=== PATIENT | male | born 1975 | race Caucasian/White ===

== ENCOUNTER → 2016-07-14 | Outpatient (CLI) | payer OTHER | END | disposition home or self-care (01) | LOC: RAD 15:16 | DX: M99.01 Segmental and somatic dysfunction of cervical region (principal); M99.03 Segmental and somatic dysfunction of lumbar region; M54.2 Cervicalgia; R20.2 Paresthesia of skin ==

== ENCOUNTER → 2016-10-29 | Day surgery (SDC) | payer OTHER ==
[~2016-10-29] VITALS: Ht 167.6 cm; Wt 127.0 kg
[~2016-10-29] MED LIST: ALL DAY ALLERGY10 MG PO; ASPIRIN ADULT L81 M2 PO; GABAPENTIN600 MG PO; LANSOPRAZOLE30 MG PO; LISINOPRIL10 M1 PO; NAPROXEN375 MG PO; SIMVASTATIN40 MG PO; VITAMIN D50000 I3 PO
--- NOTE | ~2016-10-29 | O ---
[place], [place] OPERATIVE NOTE NAME: RAMILA MÉNDEZ UNIT #: [id number] ROOM: DOCTOR: DANIEL DUNN MD BIRTHDATE: [birth year] DOS: 10/29/2016 INDICATIONS: A 41-year-old patient who has presented with chief complaint of gastroesophageal reflux symptomatology and anemia, on Prevacid 30 mg daily. The patient has been on naproxen and aspirin as well. ALLERGIES: To no known medication. FAMILY HISTORY: Noncontributory. PAST SURGICAL HISTORY: Left face repair. PAST MEDICAL HISTORY: Hypercholesterolemia, gastroesophageal reflux, hypertension, obesity, depression. SOCIAL HISTORY: Nonsmoker, rare alcohol consumer. PROCEDURE: Today's procedure part of investigation is panendoscopy and colonoscopy. PREMEDICATION: Versed and Diprivan. SCOPE: Olympus forward-viewing colonoscope 10L video. REPORT: After putting the patient in the left lateral position and after application of lubricant to rectal pouch and digital examination, scope was introduced. Thereafter, under direct visualization, I advanced through the length of colon without difficulty. Base of the cecum explored, appendiceal orifice identified, and ileocecal valve was defined. A sessile polypoid lesion at the sigmoid colon with piecemeal polypectomy was removed. Air was suctioned out. The patient was gradually extubated and tolerated the procedure well. IMPRESSION: Sessile colonic polyp, status post piecemeal polypectomy, in sigmoid colon. No evidence of colonic pathology to contribute to anemia. PLAN AND DISCUSSION: We will proceed with panendoscopy. [place], [place] OPERATIVE NOTE NAME: RAMILA MÉNDEZ UNIT #: [id number] ROOM: DOCTOR: DANIEL DUNN MD BIRTHDATE: [birth year] DANIEL DUNN MD CM:OPRECORD:OPERATIVE NOTE [id number] DANIEL DUNN MD 10/29/16 1635 interface
--- NOTE | ~2016-10-29 | O ---
[place], [place] OPERATIVE NOTE NAME: RAMILA MÉNDEZ UNIT #: [id number] ROOM: DOCTOR: DANIEL DUNN MD BIRTHDATE: [birth year] DOS: 10/29/2016 INDICATIONS: The patient has presented with epigastric distress. The patient has been on aspirin and naproxen. PROCEDURE: Today's procedure part of investigation is panendoscopy plus biopsy. PREMEDICATION: Versed and Diprivan. SCOPE: Olympus forward-viewing gastroscope Q10 video. REPORT: After putting the patient in the left lateral position and after application of lubricant to the scope, the scope was introduced. Thereafter, under direct visualization, I advanced through the length of esophagus without difficulty. Esophagus cervicothoracic distally carefully examined. Gastric pouch was entered. Gastritis was noticed. Duodenal bulb, second and third part within normal limits. Small hiatal hernia was noticed. Air was suctioned out. The patient was extubated, tolerated procedure well. IMPRESSION: Hiatal hernia, gastritis. PLAN AND DISCUSSION: The patient has been on Prevacid 30 mg daily. We will continue with Prevacid due to the fact that the patient needs to be on aspirin and naproxen and antireflux measures. Follow up routinely with you in office, p.r.n. visit with us in [facility]. I thank you very much indeed for your kind referral. DANIEL DUNN MD CM:OPRECORD:OPERATIVE NOTE [id number] DANIEL DUNN MD 10/29/16 1638 interface
[2016-10-29 10:32] VITALS: BP 126/74
[2016-10-29 12:36] VITALS: BP 99/45
[2016-10-29 12:51] VITALS: BP 112/72
[2016-10-29 13:06] VITALS: BP 127/72
== END | disposition home or self-care (01) ==
LOC: SDC 10-28 10:15
DX: K62.1 Rectal polyp (principal); K29.50 Unspecified chronic gastritis without bleeding; D64.9 Anemia, unspecified; K44.9 Diaphragmatic hernia without obstruction or gangrene; K21.9 Gastro-esophageal reflux disease without esophagitis; E78.00 Pure hypercholesterolemia, unspecified; E66.9 Obesity, unspecified; F32.9 Major depressive disorder, single episode, unspecified; I10 Essential (primary) hypertension; Z86.73 Personal history of transient ischemic attack (TIA), and cerebral infarction without residual deficits; Z83.3 Family history of diabetes mellitus; Z87.891 Personal history of nicotine dependence

== ENCOUNTER → 2017-11-04 | Outpatient (CLI) | payer OTHER | END | disposition home or self-care (01) | LOC: RAD 14:13 | DX: M47.816 Spondylosis without myelopathy or radiculopathy, lumbar region (principal); M48.061 Spinal stenosis, lumbar region without neurogenic claudication; M54.2 Cervicalgia ==

== ENCOUNTER → 2024-12-02 | Outpatient (CLI) | payer OTHER | END | disposition home or self-care (01) | LOC: RAD 15:37 | PROVIDERS: ATTEND Family Medicine | DX: M16.11 Unilateral primary osteoarthritis, right hip (principal); M25.551 Pain in right hip ==

== ENCOUNTER → 2025-01-26 | Outpatient (CLI) | payer OTHER | END | disposition home or self-care (01) | LOC: MRI 14:55 | PROVIDERS: ATTEND Anesthesiology Pain Medicine | DX: M47.27 Other spondylosis with radiculopathy, lumbosacral region (principal); M48.07 Spinal stenosis, lumbosacral region; M43.17 Spondylolisthesis, lumbosacral region ==

== ENCOUNTER → 2025-05-05 | Outpatient (CLI) | payer OTHER ==
[2025-05-08 13:07] LABS: A/G RATIO 1.4 (0.7-1.7); BETA GLOBULIN 1.1 g/dL (0.7-1.3); GLOBULIN, TOTAL 2.9 g/dL (2.2-3.9)
[2025-05-08 15:07] LABS: FREE KAPPA LIGHT CHAINS 17.2 mg/L (3.3-19.4); FREE LAMBDA LIGHT CHAINS 10.7 mg/L (5.7-26.3); K/L RATIO 1.61 (0.26-1.65)
== END | disposition home or self-care (01) ==
LOC: LAB 16:16
PROVIDERS: Student in an Organized Health Care Education/Training Program; ATTEND Family Medicine
DX: D53.9 Nutritional anemia, unspecified (principal)